=== PATIENT | female | born 2005 | race Caucasian/White ===

== ENCOUNTER 2023-06-11 13:40 | Emergency (ER) | payer OTHER ==
[2023-06-11 15:15] LABS: Bilirubin Neg (Negative); Blood, Urine 250 (Negative); Clarity Cloudy (Clear); Glucose, Urine (Dipstick) Normal (Negative); Ketone, Urine 5 mg/dL (Negative); Leukocyte 25 (Negative); Nitrite Negative (Negative); Protein, Urine (Dipstick) 30 mg/dl (Neg-Trace); Specific Gravity, Urine 1.025 (1.005-1.030); Urobilinogen Normal mg/dL (Less than 2)
[2023-06-11 15:28] LABS: Pregnancy Test - Urine (BHCG) Negative (Negative)
[2023-06-11 15:29] LABS: Pregu Control Background? CLEAR/WHITE (CLR/WHITE); Pregu Control Bar Appear? YES (CONTROL BAR); Specific Gravity 1.025 (1.002-1.036)
[2023-06-11 15:35] LABS: Squamous Epithelial 21-50 HPF (0-3)
[2023-06-11 15:36] LABS: CAUTI Indications for Culture Pregnancy
[2023-06-11 15:37] LABS: Bacteria/HPF Rare-Few HPF (None Seen)
[2023-06-11 15:38] LABS: Urine Culture Reflex Yes Yes
== END 2023-06-11 18:55 | disposition home or self-care (01) ==
LOC: CSHERS 13:40
DX: N76.0 Acute vaginitis (principal)
CPT/HCPCS: 81001; 81025; 87086; 87480; 87510; 87660; 99284